=== PATIENT | male | born 1965 | race Caucasian/White ===

== ENCOUNTER 2017-05-19 20:19 | Emergency (ER) | payer OTHER ==
[~2017-05-19] VITALS: Ht 180.3 cm; Wt 95.5 kg
[2017-05-19 21:01] VITALS: BP 126/84; PULSE 84; RESP 16; TEMP 98; O2SAT 97
[2017-05-19] MEDS ORDERED: ACETAMINOPHEN/HYDROcodone 325 MG/5 MG TAB PO ONE ×2 (21:30)
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
[2017-05-19] MEDS ORDERED: DICL75TA PO ×2 (21:55)
[2017-05-19] MEDS ORDERED: HYDR-3533 PO ×2 (21:55)
[2017-05-19] MEDS ORDERED: LOSA25TA PO ×2 (22:01)
[2017-05-19] MEDS ORDERED: bp med PO ×2 (22:01)
--- NOTE | 2017-05-19 22:13 | RADRPT ---
EXAM DATE/TIME: 05/19/2017 21:44 [facility] COMPARISON: No previous studies available for comparison. INDICATIONS : Fell today. MEDICAL HISTORY : None. SURGICAL HISTORY : None. ENCOUNTER: Initial ACUITY: 1 day PAIN SCORE: 2/10 LOCATION: Left medial and lateral side of knee FINDINGS: Four view examination of the left knee demonstrates no evidence of fracture or dislocation. Bony min eralization is normal. The articular surfaces are intact. Small knee joint effusion. CONCLUSION: No acute fracture. Mild osteoarthritis. Small joint effusion. Deonte Carrero MD on May 19, 2017 at 22:11 Board Certified Radiologist. This report was verified electronically.
== END 2017-05-19 23:08 | disposition home or self-care (01) ==
LOC: NEPK 20:19
DX: M23.92 Unspecified internal derangement of left knee (principal); I10 Essential (primary) hypertension
CPT/HCPCS: 73564; 99284; E0113; L1830